=== PATIENT | female | born 1965 | race African-American/Black ===

== ENCOUNTER 2019-10-13 15:34 | Inpatient (IN) | payer BC ==
[~2019-10-13] VITALS: Ht 157.5 cm; Wt 107.9 kg
[2019-10-13] VITALS (7 sets, daily range): BP systolic 131–185; BP diastolic 54–94
[2019-10-13] MEDS ORDERED: cloNIDine HCL 0.1 MG TABLET PO ONE (16:00)
[2019-10-13] MEDS ORDERED: IV NORMAL SALINE 1000ML BAG 1,000 ML IV ONE (16:00)
[2019-10-13 16:26] LABS: BASO # 0.1 x10^3/uL (0.0-0.2); BASO % 1 % (0-3); EOS # 0.1 x10^3/uL (0.0-0.7); EOS % 1 % (0-3); HEMATOCRIT 45.8 % (36.0-47.0); HEMOGLOBIN 14.9 g/dL (12.0-15.5); LYMPH # 2.5 x10^3/uL (1.0-4.8); LYMPH % 29 % (24-48); MEAN CORPUSCULAR HEMOGLOBIN 31 pg (25-35); MEAN CORPUSCULAR HGB CONC 33 g/dL (31-37); MEAN CORPUSCULAR VOLUME 96 fL (79-100); MONO # 0.7 x10^3/uL (0.0-1.1); MONO % 8 % (0-9); NEUT # 5.3 x10^3/uL (1.8-7.7); NEUT % 61 % (31-73); PLATELET COUNT 210 x10^3/uL (140-400); RED BLOOD COUNT 4.76 x10^6/uL (3.50-5.40); RED CELL DISTRIBUTION WIDTH 14.2 % (11.5-14.5); WHITE BLOOD COUNT 8.6 x10^3/uL (4.0-11.0)
--- NOTE | 2019-10-13 16:27 | EKG ---
[facility] [address] [place] [address] Test Date: 2019-10-13 Test Time: 16:21:54 Pat Name: BEVERLEY WEEKS Department: Room: Gender: F Chief Clinical Officer: : 1965 Requested By: JAKE WHEAT Order Number: [id number] Reading MD: Joshua Sommers MD Measurements Intervals [place] Rate: 82 P: 47 DC: 148 QRS: -18 QRSD: 84 T: 26 QT: 380 QTc: 447 Interpretive Statements SINUS RHYTHM Electronically Signed On 10-14-2019 10:06:11 CDT by Joshua Sommers MD
[2019-10-13 16:42] LABS: CREATININE 1.1 mg/dL (0.6-1.0); GFR 62.4; POTASSIUM 4.9 mmol/L (3.5-5.1)
[2019-10-13 16:55] LABS: ALBUMIN 3.8 g/dL (3.4-5.0); MAGNESIUM 1.9 mg/dL (1.8-2.4); TOTAL BILIRUBIN 0.4 mg/dL (0.2-1.0); TOTAL PROTEIN 7.5 g/dL (6.4-8.2)
[2019-10-13] MEDS ORDERED: INSULIN,REGULAR 100 UNIT DRIP 100 ML IV ONE (17:15)
--- NOTE | 2019-10-13 17:33 | PHYS DOC ---
Past Medical History Past Medical History: Hypertension Past Surgical History: Hysterectomy, Tubal ligation Smoking Status: Current Every Day Smoker Alcohol Use: Rarely General Adult EDM: Chief Complaint: BLOOD SUGAR PROBLEM HPI: HPI: Patient is a 54 year old female who was sent here from her family physician clinic due to elevated blood pressure and new onset diabetes. Patient says for about a week, she has been having frequent urination, very thirsty, drinking a lot of water. Patient went to the clinic today, they checked her blood sugar and it was over 400. Patient also had hypertension in the past but she is not been on any medication. Patient denies any chest pain, no abdominal pain, no nausea vomiting. Patient complained of generalized weakness. Review of Systems: Review of Systems: Constitutional: Denies fever or chills. [] Eyes: Denies change in visual acuity. [] HENT: Denies nasal congestion or sore throat. [] Respiratory: Denies cough or shortness of breath. [] Cardiovascular: Denies chest pain or edema. [] GI: Denies abdominal pain, nausea, vomiting, bloody stools or diarrhea. [] : Denies dysuria, POSITIVE FOR FREQUENT URINATION Musculoskeletal: Denies back pain or joint pain. [] Integument: Denies rash. [] Neurologic: Denies headache, focal weakness or sensory changes. [] Endocrine: Positive for polyuria or polydipsia. [] Lymphatic: Denies swollen glands. [] Psychiatric: Denies depression or anxiety. [] Heart Score: Risk Factors: Risk Factors: DM, Current or recent (<one month) smoker, HTN, HLP, family histo ry of CAD, obesity. Risk Scores: Score 0 - 3: 2.5% MACE over next 6 weeks - Discharge Home Score 4 - 6: 20.3% MACE over next 6 weeks - Admit for Clinical Observation Score 7 - 10: 72.7% MACE over next 6 weeks - Early Invasive Strategies Current Medications: Current Medications Medications (Trade) Dose Ordered Sig/Gavin Start Time Stop Time Status Last Admin Dose Admin Clonidine HCl (Catapres) 0.2 mg 1X ONCE 10/13/19 16:00 10/13/19 16:24 DC 10/13/19 16:32 0.2 MG Insulin Human Regular 100 ml @ 0 mls/hr 1X ONCE 10/13/19 17:15 10/13/19 17:16 DC Sodium Chloride 1,000 ml @ 1,000 mls/hr 1X ONCE 10/13/19 16:00 10/13/19 16:59 DC 10/13/19 16:32 1,000 MLS/HR Allergies: Allergies: Allergies Coded Allergies Type Severity Reaction Last Updated Verified No Known Drug Allergies 10/13/19 No Physical Exam: PE: Constitutional: Well developed, well nourished, no acute distress, non-toxic a ppearance. [] HENT: Normocephalic, atraumatic, bilateral external ears normal, oropharynx moist, no oral exudates, nose normal. [] Eyes: PERRLA, EOMI, conjunctiva normal, no discharge. [] Neck: Normal range of motion, no tenderness, supple, no stridor. [] Cardiovascular:Heart rate regular rhythm, no murmur [] Lungs & Thorax: Bilateral breath sounds clear to auscultation [] Abdomen: Bowel sounds normal, soft, no tenderness, no masses, no pulsatile masses. [] Skin: Warm, dry, no erythema, no rash. [] Back: No tenderness, no CVA tenderness. [] Extremities: No tenderness, no cyanosis, no clubbing, ROM intact, no edema. [] Neurologic: Alert and oriented X 3, normal motor function, normal sensory function, no focal deficits noted. [] Psychologic: Affect normal, judgement normal, mood normal. [] Current Patient Data: Labs: Laboratory Tests Test 10/13/19 16:19 White Blood Count 8.6 x10^3/uL (4.0-11.0) Red Blood Count 4.76 x10^6/uL (3.50-5.40) Hemoglobin 14.9 g/dL (12.0-15.5) Hematocrit 45.8 % (36.0-47.0) Mean Corpuscular Volume 96 fL (79-100) Mean Corpuscular Hemoglobin 31 pg (25-35) Mean Corpuscular Hemoglobin Concent 33 g/dL (31-37) Red Cell Distribution Width 14.2 % (11.5-14.5) Platelet Count 210 x10^3/uL (140-400) Neutrophils (%) (Auto) 61 % (31-73) Lymphocytes (%) (Auto) 29 % (24-48) Monocytes (%) (Auto) 8 % (0-9) Eosinophils (%) (Auto) 1 % (0-3) Basophils (%) (Auto) 1 % (0-3) Neutrophils # (Auto) 5.3 x10^3/uL (1.8-7.7) Lymphocytes # (Auto) 2.5 x10^3/uL (1.0-4.8) Monocytes # (Auto) 0.7 x10^3/uL (0.0-1.1) Eosinophils # (Auto) 0.1 x10^3/uL (0.0-0.7) Basophils # (Auto) 0.1 x10^3/uL (0.0-0.2) Sodium Level 130 mmol/L (136-145) L Potassium Level 4.9 mmol/L (3.5-5.1) Chloride Level 94 mmol/L (98-107) L Carbon Dioxide Level 16 mmol/L (21-32) L Anion Gap 20 (6-14) H Blood Urea Nitrogen 16 mg/dL (7-20) Creatinine 1.1 mg/dL (0.6-1.0) H Estimated GFR (Cockcroft-Gault) 62.4 BUN/Creatinine Ratio 15 (6-20) Glucose Level 445 mg/dL (70-99) H Calcium Level 9.0 mg/dL (8.5-10.1) Magnesium Level 1.9 mg/dL (1.8-2.4) Total Bilirubin 0.4 mg/dL (0.2-1.0) Aspartate Amino Transferase (AST) 14 U/L (15-37) L Alanine Aminotransferase (ALT) 31 U/L (14-59) Alkaline Phosphatase 206 U/L (46-116) H Troponin I Quantitative < 0.017 ng/mL (0.000-0.055) Total Protein 7.5 g/dL (6.4-8.2) Albumin 3.8 g/dL (3.4-5.0) Albumin/Globulin Ratio 1.0 (1.0-1.7) Acetone Level Sm pos (NEG) Laboratory Tests 10/13/19 16:19 Laboratory Tests 10/13/19 16:19 Vital Signs: Vital Signs Date Time Temp Pulse Resp B/P (MAP) Pulse Ox O2 Delivery O2 Flow Rate FiO2 10/13/19 16:32 84 215/99 10/13/19 16:16 18 97 Room Air 10/13/19 15:51 98.7 98.7 EKG: EKG: [] Radiology/Procedures: Radiology/Procedures: [] Course & Med Decision Making: Course & Med Decision Making Pertinent Labs and Imaging studies reviewed. (See chart for details) Patient is a 54-year-old female with new onset diabetic IN DKA. Patient was found to have hypertensive urgency. Patient has history hypertension but she is not on medication for it. Patient was given IV fluid, she was given .2 mg of clonidine p.o. Her blood pressure continued to be high. Patient will be admitted to hospital. Patient was started on insulin drip, and Cardene drip. Discuss with Dr. Marc who agreed to admit patient. Critical care time was [60] minutes which includes time at bedside, spent in discussion of patient's care with specialist and/or family members, with interpretation of laboratory and/or radiological studies and is exclusive of procedures. [place]rahan Disclaimer: Dragarvin Disclaimer: This electronic medical record was generated, in whole or in part, using a voice recognition dictation system. Departure Departure Impression: Primary Impression: DKA (diabetic ketoacidoses) Additional Impression: Hypertensive urgency Disposition: ADMITTED INPATIENT Admitting Physician: ABBI (DR. MCQUEEN) Condition: IMPROVED Referrals: MERRILL WEEKS MD (PCP) JAKE WHEAT DO Oct 13, 2019 17:33
[2019-10-13 17:37] LABS: BASE EXCESS ABG -11 mmol/L (-3-3); HCO3 ABG 15 mmol/L (21-28); PCO2 ABG 33 mmHg (35-46); PO2 ABG 95 mmHg (75-108); SAT O2 ABG 97 % (92-99)
[2019-10-13] MEDS ORDERED: SODIUM BICARBONATE VIAL 50 MEQ in IV 1/2 NORMAL SALINE 1,000 ML IV PRN (17:37)
[2019-10-13] MEDS ORDERED: IV NORMAL SALINE 1000ML BAG 1,000 ML IV SCH ×2 (17:37→19:02)
[2019-10-13 17:41] LABS: FIO2 ABG RA 21%
[2019-10-13] MEDS ORDERED: SODIUM PHOSPHATE 10 MMOL in IV NORMAL SALINE 100ML 250 ML IV PRN (17:45)
[2019-10-13] MEDS ORDERED: ACETAMINOPHEN 325 MG TABLET. PO PRN (17:45)
[2019-10-13] MEDS ORDERED: SODIUM PHOSPHATE 40 MMOL in IV NORMAL SALINE 500ML BAG 500 ML IV PRN (17:45)
[2019-10-13] MEDS ORDERED: ONDANSETRON PF 4 MG/2 ML VIAL. IV PRN (17:45)
[2019-10-13] MEDS ORDERED: guaiFENesin ORAL 200 MG/10 ML LIQUID. PO PRN (17:45)
[2019-10-13] MEDS ORDERED: POTASSIUM CHLORIDE 10MEQ 100 ML IV PRN ×3 (17:45)
[2019-10-13] MEDS ORDERED: SODIUM PHOSPHATE 20 MMOL in IV NORMAL SALINE 250ML 250 ML IV PRN (17:45)
[2019-10-13] MEDS ORDERED: INSULIN REGULAR VIAL 100 UNIT in IV NORMAL SALINE 100ML 100 ML IV PRN (17:45)
[2019-10-13] MEDS ORDERED: LORazepam 0.5 MG TABLET PO PRN (17:45)
[2019-10-13] MEDS ORDERED: ALBUTEROL SULFATE 2.5 MG/3 ML NEBU. NEB PRN (17:45)
[2019-10-13] MEDS ORDERED: DOCUSATE SODIUM 100 MG CAPSULE. PO PRN (17:45)
[2019-10-13] MEDS ORDERED: IV 1/2 NORMAL SALINE 1,000 ML IV SCH ×2 (19:00→19:02)
--- NOTE | 2019-10-13 19:30 | NUR ---
Pt admitted to PACU-9 from the ED. Pt is A/Ox4, SR on the monitor. Cardene and Insulin drips infusing. Pt denies pain at this time.
--- NOTE | 2019-10-13 20:16 | PDOC1 ---
History and Physical Date of Admission Date of Admission 10/13/2019 Identification/Chief Complaint Chief Complaint I feel sick History of Present Illness History of Present Illness Patient is a 54-year-old female who comes with a history of more or less 1 week prior to her admission of increased thirst and also as a consequence polyuria. The patient denies polyphagia no changes to her recent diet no recent infections either. She has past medical history of hypertension and she also complains of blurred vision over the last week. She denies any recent upper respiratory tract infections. The patient denies headache no sinus pain no cough sputum production no cough or sneezing no chest pressure no palpitations no dyspnea has been reported. She was seen in the outpatient setting by a primary care physician who recommended patient come to the ER for further evaluation. While in the ER the patient laboratory data revealed a new onset diabetes with evidence of DKA as well. Patient also had an uncontrolled hypertension greater than 220 reason why we were asked to admit the patient for further evaluation and treatment. The patient at the time my evaluation is able to provide me with details of her history no other symptoms were voiced plan of care was explained in detail and all of her concerns were addressed to the best of my abilities. No exposure to coronavirus was expressed by the patient Current Problem List Problem List Problems Medical Problems: (1) DKA (diabetic ketoacidoses) Status: Acute (2) Hypertensive urgency Status: Acute Current Medications Current Medications Current Medications Medications (Trade) Dose Ordered Sig/Gavin Start Time Stop Time Status Last Admin Dose Admin Acetaminophen (Tylenol) 650 mg PRN Q4HRS PRN 10/13/19 17:45 Albuterol Sulfate (Ventolin Neb Soln) 2.5 mg PRN Q4HRS PRN 10/13/19 17:45 Clonidine HCl (Catapres) 0.2 mg 1X ONCE 10/13/19 16:00 10/13/19 16:24 DC 10/13/19 16:32 0.2 MG Dextrose/Sodium Chloride 1,000 ml @ 250 mls/hr Q4H 10/13/19 21:00 Docusate Sodium (Colace) 100 mg PRN BID PRN 10/13/19 17:45 Enoxaparin Sodium (Lovenox 40mg Syringe) 40 mg Q24H 10/13/19 21:00 Guaifenesin (Robitussin) 200 mg PRN Q4HRS PRN 10/13/19 17:45 Insulin Human Regular 100 ml @ 0 mls/hr 1X ONCE 10/13/19 17:15 10/13/19 17:16 DC 10/13/19 18:14 7.7 MLS/HR Insulin Human Regular 100 unit/ Sodium Chloride 101 ml @ 0 mls/hr CONT PRN PRN 10/13/19 17:45 Lorazepam (Ativan) 0.5 mg PRN Q4HRS PRN 10/13/19 17:45 Magnesium Sulfate 100 ml @ 25 mls/hr PRN DAILY PRN 10/14/19 09:00 Nicardipine HCl 50 mg/Sodium Chloride 250 ml @ 25 mls/hr CONT PRN 10/13/19 17:45 10/13/19 18:11 25 MLS/HR Ondansetron HCl (Zofran) 4 mg PRN Q4HRS PRN 10/13/19 17:45 Potassium Chloride/Water 100 ml @ 100 mls/hr PRN Q1HR PRN 10/13/19 17:45 Sodium Bicarbonate 50 meq/Sodium Chloride 1,050 ml @ 500 mls/hr CONT PRN 10/13/19 17:37 Sodium Chloride 1,000 ml @ 250 mls/hr Q4H 10/13/19 19:02 Sodium Phosphate 10 mmol/Sodium Chloride 253.3333 ml @ 25 mls/hr 1X PRN PRN 10/13/19 17:45 Sodium Phosphate 20 mmol/Sodium Chloride 256.6667 ml @ 62.5 mls/hr 1X PRN PRN 10/13/19 17:45 Sodium Phosphate 40 mmol/Sodium Chloride 513.3333 ml @ 83.3 mls/hr 1X PRN PRN 10/13/19 17:45 Allergies Allergies Allergies Coded Allergies Type Severity Reaction Last Updated Verified No Known Drug Allergies 10/13/19 No ROS Review of System CONSTITUTIONAL: No fever or chills EYES: No recent changes SKIN: No rash or itching CARDIOVASCULAR: No chest pain, syncope, palpitations, or edema RESPIRATORY: No SOB or cough GASTROINTESTINAL: No nausea, vomiting or abdominal pain NEUROLOGICAL: No headaches or weakness ENDOCRINE: No cold or heat intolerance GENITOURINARY: Frequent urination MUSCULOSKELETAL: No back pain or joint pain LYMPHATICS: No enlarged lymph nodes PSYCHIATRIC: No anxiety or depression Physical Exam Physical Exam GEN.: No apparent distress. Alert and oriented. HEENT: Head is normocephalic, atraumatic NECK: Supple. LUNGS: Clear to auscultation. HEART: RRR, S1, S2 present. Peripheral pulses intact ABDOMEN: Soft, nontender. Positive bowel sounds. EXTREMITIES: Without any cyanosis. NEUROLOGIC: Normal speech, normal tone PSYCHIATRIC: Normal affect, normal mood. SKIN: No ulcerations Vitals Vitals Vital Signs Date Time Temp Pulse Resp B/P (MAP) Pulse Ox O2 Delivery O2 Flow Rate FiO2 10/13/19 18:46 70 20 161/72 (101) 97 Room Air 10/13/19 15:51 98.7 98.7 Labs Labs Laboratory Tests Test 10/13/19 16:19 10/13/19 17:06 10/13/19 19:30 White Blood Count 8.6 x10^3/uL (4.0-11.0) Red Blood Count 4.76 x10^6/uL (3.50-5.40) Hemoglobin 14.9 g/dL (12.0-15.5) Hematocrit 45.8 % (36.0-47.0) Mean Corpuscular Volume 96 fL (79-100) Mean Corpuscular Hemoglobin 31 pg (25-35) Mean Corpuscular Hemoglobin Concent 33 g/dL (31-37) Red Cell Distribution Width 14.2 % (11.5-14.5) Platelet Count 210 x10^3/uL (140-400) Neutrophils (%) (Auto) 61 % (31-73) Lymphocytes (%) (Auto) 29 % (24-48) Monocytes (%) (Auto) 8 % (0-9) Eosinophils (%) (Auto) 1 % (0-3) Basophils (%) (Auto) 1 % (0-3) Neutrophils # (Auto) 5.3 x10^3/uL (1.8-7.7) Lymphocytes # (Auto) 2.5 x10^3/uL (1.0-4.8) Monocytes # (Auto) 0.7 x10^3/uL (0.0-1.1) Eosinophils # (Auto) 0.1 x10^3/uL (0.0-0.7) Basophils # (Auto) 0.1 x10^3/uL (0.0-0.2) Sodium Level 130 mmol/L (136-145) Potassium Level 4.9 mmol/L (3.5-5.1) Chloride Level 94 mmol/L (98-107) Carbon Dioxide Level 16 mmol/L (21-32) Anion Gap 20 (6-14) Blood Urea Nitrogen 16 mg/dL (7-20) Creatinine 1.1 mg/dL (0.6-1.0) Estimated GFR (Cockcroft-Gault) 62.4 BUN/Creatinine Ratio 15 (6-20) Glucose Level 445 mg/dL (70-99) Calcium Level 9.0 mg/dL (8.5-10.1) Phosphorus Level 4.5 mg/dL (2.6-4.7) Magnesium Level 1.9 mg/dL (1.8-2.4) Total Bilirubin 0.4 mg/dL (0.2-1.0) Aspartate Amino Transf (AST/SGOT) 14 U/L (15-37) Alanine Aminotransferase (ALT/SGPT) 31 U/L (14-59) Alkaline Phosphatase 206 U/L (46-116) Troponin I Quantitative < 0.017 ng/mL (0.000-0.055) Total Protein 7.5 g/dL (6.4-8.2) Albumin 3.8 g/dL (3.4-5.0) Albumin/Globulin Ratio 1.0 (1.0-1.7) Acetone Level Sm pos (NEG) O2 Saturation 97 % (92-99) Arterial Blood pH 7.27 (7.35-7.45) Arterial Blood pCO2 at Patient Temp 33 mmHg (35-46) Arterial Blood pO2 at Patient Temp 95 mmHg (75-108) Arterial Blood HCO3 15 mmol/L (21-28) Arterial Blood Base Excess -11 mmol/L (-3-3) FiO2 Ra 21% Glucose (Fingerstick) 287 mg/dL (70-99) Laboratory Tests Test 10/13/19 16:19 10/13/19 17:06 10/13/19 19:30 White Blood Count 8.6 x10^3/uL (4.0-11.0) Red Blood Count 4.76 x10^6/uL (3.50-5.40) Hemoglobin 14.9 g/dL (12.0-15.5) Hematocrit 45.8 % (36.0-47.0) Mean Corpuscular Volume 96 fL (79-100) Mean Corpuscular Hemoglobin 31 pg (25-35) Mean Corpuscular Hemoglobin Concent 33 g/dL (31-37) Red Cell Distribution Width 14.2 % (11.5-14.5) Platelet Count 210 x10^3/uL (140-400) Neutrophils (%) (Auto) 61 % (31-73) Lymphocytes (%) (Auto) 29 % (24-48) Monocytes (%) (Auto) 8 % (0-9) Eosinophils (%) (Auto) 1 % (0-3) Basophils (%) (Auto) 1 % (0-3) Neutrophils # (Auto) 5.3 x10^3/uL (1.8-7.7) Lymphocytes # (Auto) 2.5 x10^3/uL (1.0-4.8) Monocytes # (Auto) 0.7 x10^3/uL (0.0-1.1) Eosinophils # (Auto) 0.1 x10^3/uL (0.0-0.7) Basophils # (Auto) 0.1 x10^3/uL (0.0-0.2) Sodium Level 130 mmol/L (136-145) Potassium Level 4.9 mmol/L (3.5-5.1) Chloride Level 94 mmol/L (98-107) Carbon Dioxide Level 16 mmol/L (21-32) Anion Gap 20 (6-14) Blood Urea Nitrogen 16 mg/dL (7-20) Creatinine 1.1 mg/dL (0.6-1.0) Estimated GFR (Cockcroft-Gault) 62.4 BUN/Creatinine Ratio 15 (6-20) Glucose Level 445 mg/dL (70-99) Calcium Level 9.0 mg/dL (8.5-10.1) Phosphorus Level 4.5 mg/dL (2.6-4.7) Magnesium Level 1.9 mg/dL (1.8-2.4) Total Bilirubin 0.4 mg/dL (0.2-1.0) Aspartate Amino Transf (AST/SGOT) 14 U/L (15-37) Alanine Aminotransferase (ALT/SGPT) 31 U/L (14-59) Alkaline Phosphatase 206 U/L (46-116) Troponin I Quantitative < 0.017 ng/mL (0.000-0.055) Total Protein 7.5 g/dL (6.4-8.2) Albumin 3.8 g/dL (3.4-5.0) Albumin/Globulin Ratio 1.0 (1.0-1.7) Acetone Level Sm pos (NEG) O2 Saturation 97 % (92-99) Arterial Blood pH 7.27 (7.35-7.45) Arterial Blood pCO2 at Patient Temp 33 mmHg (35-46) Arterial Blood pO2 at Patient Temp 95 mmHg (75-108) Arterial Blood HCO3 15 mmol/L (21-28) Arterial Blood Base Excess -11 mmol/L (-3-3) FiO2 Ra 21% Glucose (Fingerstick) 287 mg/dL (70-99) VTE Prophylaxis Ordered VTE Prophylaxis Devices: No VTE Pharmacological Prophylaxi: Yes Assessment/Plan Assessment/Plan Diabetic ketoacidosis New onset diabetes Hypertensive urgency Morbid obesity with a BMI of 42 High anion gap acidosis secondary to DKA Severe dehydration Pseudohyponatremia Plan: Admit the patient to the ICU where she will continue with an insulin drip and Cardene drip. Follow the protocol Keep patient n.p.o. Repeat BMP every 4 hours IV fluid resuscitation We will follow potassium and phosphorus level Further recommendations will be based on the clinical course DVT prophylaxis with SAMY Frederick MD Oct 13, 2019 20:16
[2019-10-13] MEDS ORDERED: ENOXAPARIN 40 MG/0.4 ML SYRINGE. SQ SCH (21:00)
[2019-10-13] MEDS ORDERED: IV DEXTROSE 5 %-0.45 % NACL 1,000 ML IV SCH (21:00)
[2019-10-13 21:26] LABS: CALCIUM 8.3 mg/dL (8.5-10.1); CREATININE 0.9 mg/dL (0.6-1.0); GFR 78.7; MAGNESIUM 1.7 mg/dL (1.8-2.4); PHOSPHORUS 2.6 mg/dL (2.6-4.7); POTASSIUM 3.7 mmol/L (3.5-5.1)
[2019-10-13] MEDS ORDERED: SODIUM PHOSPHATE 20 MMOL in IV NORMAL SALINE 250ML 250 ML IV ONE (22:00)
[2019-10-13] MEDS: POTASSIUM CHLORIDE 10MEQ 100 ML IV SCH ×2 (22:23→23:26)
[2019-10-13] MEDS: IV DEXTROSE 5% - 0.9 % NACL 1,000 ML IV SCH (22:23)
[2019-10-14] VITALS (18 sets, daily range): BP systolic 114–178; BP diastolic 49–88
[2019-10-14] MEDS: POTASSIUM CHLORIDE 10MEQ 100 ML IV SCH ×4 (00:26→05:26)
[2019-10-14] MEDS: IV DEXTROSE 5% - 0.9 % NACL 1,000 ML IV SCH ×2 (01:54→06:10)
[2019-10-14 02:56] LABS: CALCIUM 7.6 mg/dL (8.5-10.1); CREATININE 0.8 mg/dL (0.6-1.0); GFR 90.1; POTASSIUM 4.1 mmol/L (3.5-5.1)
[2019-10-14 03:00] LABS: MAGNESIUM 1.5 mg/dL (1.8-2.4); PHOSPHORUS 3.5 mg/dL (2.6-4.7)
[2019-10-14] MEDS ORDERED: MAGNESIUM SULFATE 4GM 100 ML IV ONE (03:45)
[2019-10-14 08:59] LABS: CALCIUM 7.7 mg/dL (8.5-10.1); CREATININE 0.7 mg/dL (0.6-1.0); GFR 105.1; MAGNESIUM 1.9 mg/dL (1.8-2.4); PHOSPHORUS 2.3 mg/dL (2.6-4.7); POTASSIUM 3.9 mmol/L (3.5-5.1)
[2019-10-14] MEDS ORDERED: MAGNESIUM SULFATE 4GM 100 ML IV PRN (09:00)
[2019-10-14] MEDS: INSULIN GLARGINE SYRINGE. SQ SCH ×2 (10:04→21:00)
[2019-10-14] MEDS ORDERED: ENALAPRILAT 1.25 MG/ML VIAL. IVP PRN (11:30)
[2019-10-14] MEDS: hydroCHLOROthiazide 12.5 MG CAPSULE PO SCH (11:40)
[2019-10-14] MEDS: LISINOPRIL 20 MG TABLET PO SCH (11:41)
--- NOTE | 2019-10-14 15:43 | NUR ---
SS following for discharge planning. SS reviewed pt chart and discussed with RN. Pt is from home with spouse and is currently on room air. SS will continue to follow for discharge planning.
[2019-10-14] MEDS: amLODIPine BESYLATE 5 MG TABLET PO SCH (16:50)
--- NOTE | 2019-10-14 17:15 | PDOC ---
PROGRESS NOTES Chief Complaint Chief Complaint Diabetic ketoacidosis resolved New onset diabetes counseling done greater than 20 minutes in [id number] encounter Hypertensive urgency resolved Morbid obesity with a BMI of 42 High anion gap acidosis secondary to DKA resolved Severe dehydration resolved Pseudohyponatremia resolved Plan: Continue with lisinopril hydrochlorothiazide and amlodipine Vasotec as needed May move to the medical floor Reassess in the a.m. and if glycemia continues to be controlled she may be discharged in the morning Further recommendations will be based on the clinical course DVT prophylaxis with SCDs Greater than 40 minutes spent in the care of the patient today in counseling coordination of care and [id number] contact History of Present Illness History of Present Illness Patient much better compared to yesterday. Her anion gap has closed and she is tolerating a diet. Patient has received education regarding her new diagnosis of diabetes importance of observing an ADA diet and I have explained to her the different options that we have as far as treatment plans. Acute complications of the disease and chronic complications of the disease were also presented to the patient including the possibility of blindness nontraumatic amputations kidney disease that can end up in dialysis heart disease etc. she acknowledged understanding of all the information that I have provided during my encounter Vitals Vitals Vital Signs Date Time Temp Pulse Resp B/P (MAP) Pulse Ox O2 Delivery O2 Flow Rate FiO2 10/14/19 16:50 74 155/75 10/14/19 16:00 98.7 18 97 Room Air 98.7 Physical Exam Physical Exam Gen.: well-developed well-nourished in no apparent distress Head: Normal shape atraumatic Eyes: Pupils equal reactive to light and accommodation, normal conjunctivae and lids Ears: Normal shape Nose: Normal shape no trauma Mouth: No exudates of the back of throat no thrush no lesions Neck: Supple no JVD no carotid bruit or lymphadenopathy no thyromegaly Chest: Lungs clear to auscultation with good inspiratory effort no crackles rales or rhonchi Cardiovascular: S1-S2 regular rhythm no murmurs gallops or rubs Abdomen: Bowel sounds present soft nontender no hepatosplenomegaly appreciated sign Extremities: No clubbing no cyanosis no edema peripheral pulses palpated bilaterally Neurological: Alert awake oriented in person time place and situation, cranial nerves II through XII intact, no motor or sensory deficits appreciated Psych: Appropriate mood, cooperative Labs LABS Laboratory Tests Test 10/13/19 17:06 10/13/19 19:30 10/13/19 20:33 10/13/19 20:55 O2 Saturation 97 % (92-99) Arterial Blood pH 7.27 (7.35-7.45) Arterial Blood pCO2 at Patient Temp 33 mmHg (35-46) Arterial Blood pO2 at Patient Temp 95 mmHg (75-108) Arterial Blood HCO3 15 mmol/L (21-28) Arterial Blood Base Excess -11 mmol/L (-3-3) FiO2 Ra 21% Glucose (Fingerstick) 287 mg/dL (70-99) 230 mg/dL (70-99) Sodium Level 135 mmol/L (136-145) Potassium Level 3.7 mmol/L (3.5-5.1) Chloride Level 102 mmol/L (98-107) Carbon Dioxide Level 18 mmol/L (21-32) Anion Gap 15 (6-14) Blood Urea Nitrogen 13 mg/dL (7-20) Creatinine 0.9 mg/dL (0.6-1.0) Estimated GFR (Cockcroft-Gault) 78.7 Glucose Level 225 mg/dL (70-99) Calcium Level 8.3 mg/dL (8.5-10.1) Phosphorus Level 2.6 mg/dL (2.6-4.7) Magnesium Level 1.7 mg/dL (1.8-2.4) Test 10/13/19 21:40 10/13/19 22:42 10/13/19 23:45 10/14/19 00:47 Glucose (Fingerstick) 192 mg/dL (70-99) 215 mg/dL (70-99) 206 mg/dL (70-99) 154 mg/dL (70-99) Test 10/14/19 01:50 10/14/19 02:45 10/14/19 02:54 10/14/19 03:57 Glucose (Fingerstick) 142 mg/dL (70-99) 166 mg/dL (70-99) 176 mg/dL (70-99) Sodium Level 138 mmol/L (136-145) Potassium Level 4.1 mmol/L (3.5-5.1) Chloride Level 107 mmol/L (98-107) Carbon Dioxide Level 23 mmol/L (21-32) Anion Gap 8 (6-14) Blood Urea Nitrogen 10 mg/dL (7-20) Creatinine 0.8 mg/dL (0.6-1.0) Estimated GFR (Cockcroft-Gault) 90.1 Glucose Level 169 mg/dL (70-99) Calcium Level 7.6 mg/dL (8.5-10.1) Phosphorus Level 3.5 mg/dL (2.6-4.7) Magnesium Level 1.5 mg/dL (1.8-2.4) Test 10/14/19 05:06 10/14/19 06:12 10/14/19 07:17 10/14/19 08:15 Glucose (Fingerstick) 99 mg/dL (70-99) 195 mg/dL (70-99) 177 mg/dL (70-99) Sodium Level 140 mmol/L (136-145) Potassium Level 3.9 mmol/L (3.5-5.1) Chloride Level 109 mmol/L (98-107) Carbon Dioxide Level 21 mmol/L (21-32) Anion Gap 10 (6-14) Blood Urea Nitrogen 8 mg/dL (7-20) Creatinine 0.7 mg/dL (0.6-1.0) Estimated GFR (Cockcroft-Gault) 105.1 Glucose Level 156 mg/dL (70-99) Calcium Level 7.7 mg/dL (8.5-10.1) Phosphorus Level 2.3 mg/dL (2.6-4.7) Magnesium Level 1.9 mg/dL (1.8-2.4) Test 10/14/19 08:18 10/14/19 09:01 10/14/19 09:23 10/14/19 10:31 Glucose (Fingerstick) 157 mg/dL (70-99) 160 mg/dL (70-99) 155 mg/dL (70-99) 124 mg/dL (70-99) Test 10/14/19 12:04 10/14/19 15:51 Glucose (Fingerstick) 164 mg/dL (70-99) 244 mg/dL (70-99) Assessment and Plan Assessmemt and Plan Problems Medical Problems: (1) DKA (diabetic ketoacidoses) Status: Acute (2) Hypertensive urgency Status: Acute Comment Review of Relevant I have reviewed the following items yashira (where applicable) has been applied. Labs Laboratory Tests Test 10/13/19 16:19 10/13/19 17:06 10/13/19 19:30 10/13/19 20:33 White Blood Count 8.6 x10^3/uL (4.0-11.0) Red Blood Count 4.76 x10^6/uL (3.50-5.40) Hemoglobin 14.9 g/dL (12.0-15.5) Hematocrit 45.8 % (36.0-47.0) Mean Corpuscular Volume 96 fL (79-100) Mean Corpuscular Hemoglobin 31 pg (25-35) Mean Corpuscular Hemoglobin Concent 33 g/dL (31-37) Red Cell Distribution Width 14.2 % (11.5-14.5) Platelet Count 210 x10^3/uL (140-400) Neutrophils (%) (Auto) 61 % (31-73) Lymphocytes (%) (Auto) 29 % (24-48) Monocytes (%) (Auto) 8 % (0-9) Eosinophils (%) (Auto) 1 % (0-3) Basophils (%) (Auto) 1 % (0-3) Neutrophils # (Auto) 5.3 x10^3/uL (1.8-7.7) Lymphocytes # (Auto) 2.5 x10^3/uL (1.0-4.8) Monocytes # (Auto) 0.7 x10^3/uL (0.0-1.1) Eosinophils # (Auto) 0.1 x10^3/uL (0.0-0.7) Basophils # (Auto) 0.1 x10^3/uL (0.0-0.2) Sodium Level 130 mmol/L (136-145) Potassium Level 4.9 mmol/L (3.5-5.1) Chloride Level 94 mmol/L (98-107) Carbon Dioxide Level 16 mmol/L (21-32) Anion Gap 20 (6-14) Blood Urea Nitrogen 16 mg/dL (7-20) Creatinine 1.1 mg/dL (0.6-1.0) Estimated GFR (Cockcroft-Gault) 62.4 BUN/Creatinine Ratio 15 (6-20) Glucose Level 445 mg/dL (70-99) Calcium Level 9.0 mg/dL (8.5-10.1) Phosphorus Level 4.5 mg/dL (2.6-4.7) Magnesium Level 1.9 mg/dL (1.8-2.4) Total Bilirubin 0.4 mg/dL (0.2-1.0) Aspartate Amino Transf (AST/SGOT) 14 U/L (15-37) Alanine Aminotransferase (ALT/SGPT) 31 U/L (14-59) Alkaline Phosphatase 206 U/L (46-116) Troponin I Quantitative < 0.017 ng/mL (0.000-0.055) Total Protein 7.5 g/dL (6.4-8.2) Albumin 3.8 g/dL (3.4-5.0) Albumin/Globulin Ratio 1.0 (1.0-1.7) Acetone Level Sm pos (NEG) O2 Saturation 97 % (92-99) Arterial Blood pH 7.27 (7.35-7.45) Arterial Blood pCO2 at Patient Temp 33 mmHg (35-46) Arterial Blood pO2 at Patient Temp 95 mmHg (75-108) Arterial Blood HCO3 15 mmol/L (21-28) Arterial Blood Base Excess -11 mmol/L (-3-3) FiO2 Ra 21% Glucose (Fingerstick) 287 mg/dL (70-99) 230 mg/dL (70-99) Test 10/13/19 20:55 10/13/19 21:40 10/13/19 22:42 10/13/19 23:45 Sodium Level 135 mmol/L (136-145) Potassium Level 3.7 mmol/L (3.5-5.1) Chloride Level 102 mmol/L (98-107) Carbon Dioxide Level 18 mmol/L (21-32) Anion Gap 15 (6-14) Blood Urea Nitrogen 13 mg/dL (7-20) Creatinine 0.9 mg/dL (0.6-1.0) Estimated GFR (Cockcroft-Gault) 78.7 Glucose Level 225 mg/dL (70-99) Calcium Level 8.3 mg/dL (8.5-10.1) Phosphorus Level 2.6 mg/dL (2.6-4.7) Magnesium Level 1.7 mg/dL (1.8-2.4) Glucose (Fingerstick) 192 mg/dL (70-99) 215 mg/dL (70-99) 206 mg/dL (70-99) Test 10/14/19 00:47 10/14/19 01:50 10/14/19 02:45 10/14/19 02:54 Glucose (Fingerstick) 154 mg/dL (70-99) 142 mg/dL (70-99) 166 mg/dL (70-99) Sodium Level 138 mmol/L (136-145) Potassium Level 4.1 mmol/L (3.5-5.1) Chloride Level 107 mmol/L (98-107) Carbon Dioxide Level 23 mmol/L (21-32) Anion Gap 8 (6-14) Blood Urea Nitrogen 10 mg/dL (7-20) Creatinine 0.8 mg/dL (0.6-1.0) Estimated GFR (Cockcroft-Gault) 90.1 Glucose Level 169 mg/dL (70-99) Calcium Level 7.6 mg/dL (8.5-10.1) Phosphorus Level 3.5 mg/dL (2.6-4.7) Magnesium Level 1.5 mg/dL (1.8-2.4) Test 10/14/19 03:57 10/14/19 05:06 10/14/19 06:12 10/14/19 07:17 Glucose (Fingerstick) 176 mg/dL (70-99) 99 mg/dL (70-99) 195 mg/dL (70-99) 177 mg/dL (70-99) Test 10/14/19 08:15 10/14/19 08:18 10/14/19 09:01 10/14/19 09:23 Sodium Level 140 mmol/L (136-145) Potassium Level 3.9 mmol/L (3.5-5.1) Chloride Level 109 mmol/L (98-107) Carbon Dioxide Level 21 mmol/L (21-32) Anion Gap 10 (6-14) Blood Urea Nitrogen 8 mg/dL (7-20) Creatinine 0.7 mg/dL (0.6-1.0) Estimated GFR (Cockcroft-Gault) 105.1 Glucose Level 156 mg/dL (70-99) Calcium Level 7.7 mg/dL (8.5-10.1) Phosphorus Level 2.3 mg/dL (2.6-4.7) Magnesium Level 1.9 mg/dL (1.8-2.4) Glucose (Fingerstick) 157 mg/dL (70-99) 160 mg/dL (70-99) 155 mg/dL (70-99) Test 10/14/19 10:31 10/14/19 12:04 10/14/19 15:51 Glucose (Fingerstick) 124 mg/dL (70-99) 164 mg/dL (70-99) 244 mg/dL (70-99) Laboratory Tests Test 10/13/19 17:06 10/13/19 19:30 10/13/19 20:33 10/13/19 20:55 O2 Saturation 97 % (92-99) Arterial Blood pH 7.27 (7.35-7.45) Arterial Blood pCO2 at Patient Temp 33 mmHg (35-46) Arterial Blood pO2 at Patient Temp 95 mmHg (75-108) Arterial Blood HCO3 15 mmol/L (21-28) Arterial Blood Base Excess -11 mmol/L (-3-3) FiO2 Ra 21% Glucose (Fingerstick) 287 mg/dL (70-99) 230 mg/dL (70-99) Sodium Level 135 mmol/L (136-145) Potassium Level 3.7 mmol/L (3.5-5.1) Chloride Level 102 mmol/L (98-107) Carbon Dioxide Level 18 mmol/L (21-32) Anion Gap 15 (6-14) Blood Urea Nitrogen 13 mg/dL (7-20) Creatinine 0.9 mg/dL (0.6-1.0) Estimated GFR (Cockcroft-Gault) 78.7 Glucose Level 225 mg/dL (70-99) Calcium Level 8.3 mg/dL (8.5-10.1) Phosphorus Level 2.6 mg/dL (2.6-4.7) Magnesium Level 1.7 mg/dL (1.8-2.4) Test 10/13/19 21:40 10/13/19 22:42 10/13/19 23:45 10/14/19 00:47 Glucose (Fingerstick) 192 mg/dL (70-99) 215 mg/dL (70-99) 206 mg/dL (70-99) 154 mg/dL (70-99) Test 10/14/19 01:50 10/14/19 02:45 10/14/19 02:54 10/14/19 03:57 Glucose (Fingerstick) 142 mg/dL (70-99) 166 mg/dL (70-99) 176 mg/dL (70-99) Sodium Level 138 mmol/L (136-145) Potassium Level 4.1 mmol/L (3.5-5.1) Chloride Level 107 mmol/L (98-107) Carbon Dioxide Level 23 mmol/L (21-32) Anion Gap 8 (6-14) Blood Urea Nitrogen 10 mg/dL (7-20) Creatinine 0.8 mg/dL (0.6-1.0) Estimated GFR (Cockcroft-Gault) 90.1 Glucose Level 169 mg/dL (70-99) Calcium Level 7.6 mg/dL (8.5-10.1) Phosphorus Level 3.5 mg/dL (2.6-4.7) Magnesium Level 1.5 mg/dL (1.8-2.4) Test 10/14/19 05:06 10/14/19 06:12 10/14/19 07:17 10/14/19 08:15 Glucose (Fingerstick) 99 mg/dL (70-99) 195 mg/dL (70-99) 177 mg/dL (70-99) Sodium Level 140 mmol/L (136-145) Potassium Level 3.9 mmol/L (3.5-5.1) Chloride Level 109 mmol/L (98-107) Carbon Dioxide Level 21 mmol/L (21-32) Anion Gap 10 (6-14) Blood Urea Nitrogen 8 mg/dL (7-20) Creatinine 0.7 mg/dL (0.6-1.0) Estimated GFR (Cockcroft-Gault) 105.1 Glucose Level 156 mg/dL (70-99) Calcium Level 7.7 mg/dL (8.5-10.1) Phosphorus Level 2.3 mg/dL (2.6-4.7) Magnesium Level 1.9 mg/dL (1.8-2.4) Test 10/14/19 08:18 10/14/19 09:01 10/14/19 09:23 10/14/19 10:31 Glucose (Fingerstick) 157 mg/dL (70-99) 160 mg/dL (70-99) 155 mg/dL (70-99) 124 mg/dL (70-99) Test 10/14/19 12:04 10/14/19 15:51 Glucose (Fingerstick) 164 mg/dL (70-99) 244 mg/dL (70-99) Medications Current Medications Clonidine HCl (Catapres) 0.2 mg 1X ONCE PO Last administered on 10/13/19at 16:32; Start 10/13/19 at 16:00; Stop 10/13/19 at 16:24; Status DC Sodium Chloride 1,000 ml @ 1,000 mls/hr 1X ONCE IV Last administered on 10/13/19at 16:32; Start 10/13/19 at 16:00; Stop 10/13/19 at 16:59; Status DC Insulin Human Regular 100 ml @ 0 mls/hr 1X ONCE IV Last administered on 10/13/19at 18:14; Start 10/13/19 at 17:15; Stop 10/13/19 at 17:16; Status DC Nicardipine HCl 50 mg/Sodium Chloride 250 ml @ 25 mls/hr CONT PRN IV SEE I/O RECORD Last administered on 10/13/19at 18:11; Start 10/13/19 at 17:45 Sodium Chloride 1,000 ml @ 1,000 mls/hr Q1H IV Last administered on 10/13/19at 18:25; Start 10/13/19 at 17:37; Stop 10/13/19 at 18:36; Status DC Sodium Chloride 1,000 ml @ 500 mls/hr Q2H IV ; Start 10/13/19 at 19:00; Stop 10/13/19 at 19:01; Status DC Sodium Chloride 1,000 ml @ 250 mls/hr Q4H IV ; Start 10/13/19 at 19:02; Stop 10/14/19 at 11:39; Status DC Sodium Chloride 1,000 ml @ 250 mls/hr Q4H IV ; Start 10/13/19 at 19:02; Stop 10/14/19 at 11:39; Status DC Dextrose/Sodium Chloride 1,000 ml @ 250 mls/hr Q4H IV ; Start 10/13/19 at 21:00; Stop 10/13/19 at 21:46; Status DC Insulin Human Regular 100 unit/ Sodium Chloride 101 ml @ 0 mls/hr CONT PRN PRN IV PER PROTOCOL Last administered on 10/14/19at 06:38; Start 10/13/19 at 17:45; Stop 10/14/19 at 11:39; Status DC Potassium Chloride/Water 100 ml @ 100 mls/hr PRN Q1HR PRN IV SEE COMMENTS; Start 10/13/19 at 17:45; Stop 10/14/19 at 11:39; Status DC Potassium Chloride/Water 100 ml @ 100 mls/hr PRN Q1HR PRN IV SEE COMMENTS; Start 10/13/19 at 17:45; Stop 10/14/19 at 11:40; Status DC Potassium Chloride/Water 100 ml @ 100 mls/hr PRN Q1HR PRN IV SEE COMMENTS; Start 10/13/19 at 17:45; Stop 10/14/19 at 11:40; Status DC Magnesium Sulfate 100 ml @ 25 mls/hr PRN DAILY PRN IV SEE COMMENTS; Start 10/14/19 at 09:00 Sodium Bicarbonate 50 meq/Sodium Chloride 1,050 ml @ 500 mls/hr CONT PRN IV SEE COMMENTS; Start 10/13/19 at 17:37; Stop 10/14/19 at 13:37; Status DC Sodium Phosphate 40 mmol/Sodium Chloride 513.3333 ml @ 83.3 mls/hr 1X PRN PRN IV SEE COMMENTS; Start 10/13/19 at 17:45 Sodium Phosphate 20 mmol/Sodium Chloride 256.6667 ml @ 62.5 mls/hr 1X PRN PRN IV SEE COMMENTS; Start 10/13/19 at 17:45; Stop 10/14/19 at 11:39; Status DC Sodium Phosphate 10 mmol/Sodium Chloride 253.3333 ml @ 25 mls/hr 1X PRN PRN IV SEE COMMENTS; Start 10/13/19 at 17:45; Stop 10/14/19 at 11:39; Status DC Ondansetron HCl (Zofran) 4 mg PRN Q4HRS PRN IV NAUSEA/VOMITING; Start 10/13/19 at 17:45 Acetaminophen (Tylenol) 650 mg PRN Q4HRS PRN PO TEMP OVER 100.4F OR MILD PAIN; Start 10/13/19 at 17:45 Docusate Sodium (Colace) 100 mg PRN BID PRN PO CONSTIPATION; Start 10/13/19 at 17:45 Albuterol Sulfate (Ventolin Neb Soln) 2.5 mg PRN Q4HRS PRN NEB SHORTNESS OF BREATH; Start 10/13/19 at 17:45 Guaifenesin (Robitussin) 200 mg PRN Q4HRS PRN PO COUGH; Start 10/13/19 at 17:45 Lorazepam (Ativan) 0.5 mg PRN Q4HRS PRN PO ANXIETY / AGITATION; Start 10/13/19 at 17:45 Enoxaparin Sodium (Lovenox 40mg Syringe) 40 mg Q24H SQ ; Start 10/13/19 at 21:00; Stop 10/14/19 at 09:44; Status DC Dextrose/Sodium Chloride 1,000 ml @ 250 mls/hr Q4H IV Last administered on 10/14/19at 06:10; Start 10/13/19 at 22:00; Stop 10/14/19 at 11:39; Status DC Potassium Chloride/Water 100 ml @ 100 mls/hr Q1H IV Last administered on 10/14/19at 01:30; Start 10/13/19 at 22:00; Stop 10/14/19 at 01:59; Status DC Sodium Phosphate 20 mmol/Sodium Chloride 256.6667 ml @ 64.167 m... 1X ONCE IV Last administered on 10/13/19at 22:23; Start 10/13/19 at 22:00; Stop 10/14/19 at 01:59; Status DC Potassium Chloride/Water 100 ml @ 100 mls/hr Q1H IV Last administered on 10/14/19at 05:26; Start 10/14/19 at 04:00; Stop 10/14/19 at 05:59; Status DC Magnesium Sulfate 100 ml @ 25 mls/hr 1X ONCE IV Last administered on 10/14/19at 06:38; Start 10/14/19 at 03:45; Stop 10/14/19 at 07:44; Status DC Insulin Glargine (Lantus Syringe) 30 unit BID SQ Last administered on 10/14/19at 10:04; Start 10/14/19 at 10:00 Enoxaparin Sodium (Lovenox 40mg Syringe) 40 mg Q12HR SQ ; Start 10/14/19 at 21:00 Lisinopril (Prinivil) 20 mg DAILY PO Last administered on 10/14/19at 11:41; Start 10/14/19 at 11:30 Hydrochlorothiazide (Microzide) 12.5 mg DAILY PO Last administered on 10/14/19at 11:40; Start 10/14/19 at 11:30 Enalaprilat (Vasotec Inj) 1.25 mg PRN Q6HRS PRN IVP HYPERTENSION Last administered on 10/14/19at 13:33; Start 10/14/19 at 11:30 Amlodipine Besylate (Norvasc) 5 mg DAILY PO Last administered on 10/14/19at 16:50; Start 10/14/19 at 16:45 Vitals/I & O Vital Sign - Last 24 Hours 10/13/19 10/13/19 10/13/19 10/13/19 17:39 17:42 18:10 18:25 Pulse 76 82 72 Resp 18 16 18 B/P (MAP) 203/90 (127) 212/86 (128) 141/73 (95) Pulse Ox 100 97 100 97 O2 Delivery Room Air Room Air Room Air Room Air 10/13/19 10/13/19 10/13/19 10/13/19 18:33 18:46 19:15 19:30 Temp 98.5 98.5 Pulse 72 70 74 Resp 18 20 22 B/P (MAP) 148/83 (104) 161/72 (101) 185/94 (124) Pulse Ox 97 97 95 O2 Delivery Room Air Room Air Room Air Room Air 10/13/19 10/13/19 10/13/19 10/13/19 19:30 19:45 20:00 21:00 Pulse 74 74 74 70 Resp 19 19 19 19 B/P (MAP) 159/70 (99) 147/68 (94) 160/65 (96) 131/57 (81) Pulse Ox 95 95 95 92 O2 Delivery Room Air Room Air Room Air Room Air 10/13/19 10/13/19 10/14/19 10/14/19 22:00 23:00 00:00 00:00 Pulse 72 70 74 Resp 19 19 19 B/P (MAP) 132/58 (82) 147/54 (85) 114/54 (74) Pulse Ox 94 94 94 O2 Delivery Room Air Room Air Room Air Room Air 10/14/19 10/14/19 10/14/19 10/14/19 00:15 01:00 02:00 03:00 Temp 98.3 98.3 Pulse 71 71 70 69 Resp 21 14 20 18 B/P (MAP) 134/64 (87) 123/58 (79) 148/66 (93) 135/54 (81) Pulse Ox 100 100 98 100 O2 Delivery Room Air Room Air Room Air Room Air 10/14/19 10/14/19 10/14/19 10/14/19 04:00 04:00 04:15 05:00 Temp 98.6 98.6 Pulse 77 79 66 Resp 25 18 19 B/P (MAP) 114/49 (70) 131/56 (81) 146/66 (92) Pulse Ox 100 100 98 O2 Delivery Room Air Room Air Room Air Room Air 10/14/19 10/14/19 10/14/19 10/14/19 06:00 07:00 08:00 08:00 Temp 99.1 99.1 Pulse 67 64 62 Resp 20 22 20 B/P (MAP) 127/69 (88) 119/54 (75) 151/54 (86) Pulse Ox 96 96 97 O2 Delivery Room Air Room Air Room Air Room Air 10/14/19 10/14/19 10/14/19 10/14/19 09:00 10:00 11:41 12:00 Temp 99.5 99.5 Pulse 70 64 66 63 Resp 24 18 20 B/P (MAP) 161/74 (103) 159/64 (95) 185/77 178/88 (118) Pulse Ox 97 97 97 O2 Delivery Room Air Room Air Room Air 10/14/19 10/14/19 10/14/19 13:33 16:00 16:50 Temp 98.7 98.7 Pulse 65 62 74 Resp 18 B/P (MAP) 172/72 178/80 (112) 155/75 Pulse Ox 97 O2 Delivery Room Air Intake and Output 10/13/19 10/13/19 10/14/19 15:00 23:00 07:00 Intake Total 1000 ml 3170 ml Output Total 15 ml Balance 1000 ml 3155 ml SAMY VEGA MD Oct 14, 2019 17:15
[2019-10-14] MEDS ORDERED: IV DEXTROSE 5% 250 ML BAG. IV PRN (19:45)
[2019-10-14] MEDS ORDERED: DEXTROSE 50% 25 GM / 50ML DISP.SYRIN. IV PRN (19:45)
[2019-10-14] MEDS ORDERED: cloNIDine TTS-2 1 PATCH PATCH TD SCH (20:00)
--- NOTE | 2019-10-14 20:10 | NUR ---
At 1930 Patient's SBP 161, patient has PRN Vasotec IV for SBP>160 but all IVs dc'd on previous shift and patient refused new IV start; Dr Deborah ramírez. Dr Cabrera returned page at 1940, updated on condition and notified of above, also discussed increasing FSBS, Lantus Insulin dosage, and FSBS oredered AC and HS but patient does not have a Humalog Insulin Sliding Scale ordered. Orders received to start Clonidine TTS-2 patch tonight and Low Dose Humalog Insulin order set--see orders. Clonidine TTS-2 patch applied to Left upper chest on patient, she was educated on dose, when to change, alternate sites, side affects, S/Sx of hypotension and when changing positions need to slowly raise from a lying or sitting position and monitor for dizziness, lightheadedness and unsteadiness. Patient also notified of Humalog Insulin dose starting tonight and reviewed S/Sx of high and low blood sugar. All questions answered and patient verbalized understanding.
--- NOTE | 2019-10-14 20:20 | NUR ---
Patient transferred to room 444, accompanied by this RN. Patient ambulated to room from PACU with standby assist by RN without difficulty; she denied dizziness, unsteadiness and shortness of air. Patient oriented to room, Nursing call light, Bed/TV controls, telephone, and bathroom; patient encouraged to notify RN when toileting if having any symptoms ie, dizziness, lightheadedness or unsteadiness--patient verbalized agreement. Patient also introduced to RN and [employer]. Transported with clothing, shoes, wig, and cell phone.
[2019-10-14] MEDS: ENOXAPARIN 40 MG/0.4 ML SYRINGE. SQ SCH (22:09)
[2019-10-14] MEDS: INSULIN LISPRO 300 UNITS/3 ML VIAL. SQ SCH (22:18)
[2019-10-15 03:07] LABS: HEMOGLOBIN A1C 13.3 % (4.8-5.6)
[2019-10-15 03:07] LABS: HEMOGLOBIN A1C 13.1 % (4.8-5.6)
[2019-10-15 04:00] VITALS: BP 168/72
[2019-10-15 07:00] VITALS: BP 180/69
[2019-10-15] MEDS: LISINOPRIL 20 MG TABLET PO SCH (08:55)
[2019-10-15] MEDS: amLODIPine BESYLATE 5 MG TABLET PO SCH ×2 (08:56→20:32)
[2019-10-15] MEDS: hydroCHLOROthiazide 12.5 MG CAPSULE PO SCH (08:56)
[2019-10-15] MEDS: INSULIN GLARGINE SYRINGE. SQ SCH ×2 (09:06→20:44)
[2019-10-15] MEDS: INSULIN LISPRO 300 UNITS/3 ML VIAL. SQ SCH ×4 (09:12→20:48)
[2019-10-15] MEDS: ENOXAPARIN 40 MG/0.4 ML SYRINGE. SQ SCH ×2 (09:14→21:00)
--- NOTE | 2019-10-15 11:58 | PDOC ---
PROGRESS NOTES Chief Complaint Chief Complaint IMPRESSION Diabetic ketoacidosis resolved New onset diabetes counseling done greater than 20 minutes in eykn-pu-gdxn encounter Hypertensive urgency suboptimal control Morbid obesity with a BMI of 42 High anion gap acidosis secondary to DKA resolved Severe dehydration resolved Pseudohyponatremia resolved Plan: Continue with lisinopril inc to 15 mg po bid , hydrochlorothiazide and inc norvasc to 5 mg po bid Vasotec as needed iv medical floor Reassess in the a.m. and if glycemia continues to be controlled she may be discharged soon Further recommendations will be based on the clinical course DVT prophylaxis with SCDs Greater than 38 minutes spent in the care of the patient today t> 50% OF TIME SPENT WITH CHART REVIEW, pt exam, pt care coordination History of Present Illness History of Present Illness bp uncontrolled anion gap has closed and she is tolerating a diet. Patient has received education regarding her new diagnosis of diabetes importance of observing an ADA diet and I have explained to her the different options that we have as far as treatment plans. Acute complications of the disease and chronic complications of the disease were also presented to the patient including the possibility of blindness nontraumatic amputations kidney disease that can end up in dialysis heart disease etc. she acknowledged understanding of all the information that I have provided during my encounter Vitals Vitals Vital Signs Date Time Temp Pulse Resp B/P (MAP) Pulse Ox O2 Delivery O2 Flow Rate FiO2 10/15/19 08:56 76 180/69 10/15/19 07:00 97.9 16 98 Room Air 97.9 Physical Exam Physical Exam Gen.: well-developed well-nourished in no apparent distress Head: Normal shape atraumatic Eyes: Pupils equal reactive to light and accommodation, normal conjunctivae and lids Ears: Normal shape Nose: Normal shape no trauma Mouth: No exudates of the back of throat no thrush no lesions Neck: Supple no JVD no carotid bruit or lymphadenopathy no thyromegaly Chest: Lungs clear to auscultation with good inspiratory effort no crackles rales or rhonchi Cardiovascular: S1-S2 regular rhythm no murmurs gallops or rubs Abdomen: Bowel sounds present soft nontender no hepatosplenomegaly appreciated sign Extremities: No clubbing no cyanosis no edema peripheral pulses palpated bilaterally Neurological: Alert awake oriented in person time place and situation, cranial nerves II through XII intact, no motor or sensory deficits appreciated Psych: Appropriate mood, cooperative General: Alert, Oriented X3, Cooperative Heart: Regular rate Labs LABS Laboratory Tests Test 10/14/19 12:04 10/14/19 15:51 10/14/19 21:06 10/15/19 08:18 Glucose (Fingerstick) 164 mg/dL (70-99) 244 mg/dL (70-99) 320 mg/dL (70-99) 261 mg/dL (70-99) Test 10/15/19 11:17 Glucose (Fingerstick) 225 mg/dL (70-99) Assessment and Plan Assessmemt and Plan Problems Medical Problems: (1) DKA (diabetic ketoacidoses) Status: Acute (2) Hypertensive urgency Status: Acute Comment Review of Relevant I have reviewed the following items yashira (where applicable) has been applied. Labs Laboratory Tests Test 10/13/19 16:19 10/13/19 17:06 10/13/19 19:30 10/13/19 20:33 White Blood Count 8.6 x10^3/uL (4.0-11.0) Red Blood Count 4.76 x10^6/uL (3.50-5.40) Hemoglobin 14.9 g/dL (12.0-15.5) Hematocrit 45.8 % (36.0-47.0) Mean Corpuscular Volume 96 fL (79-100) Mean Corpuscular Hemoglobin 31 pg (25-35) Mean Corpuscular Hemoglobin Concent 33 g/dL (31-37) Red Cell Distribution Width 14.2 % (11.5-14.5) Platelet Count 210 x10^3/uL (140-400) Neutrophils (%) (Auto) 61 % (31-73) Lymphocytes (%) (Auto) 29 % (24-48) Monocytes (%) (Auto) 8 % (0-9) Eosinophils (%) (Auto) 1 % (0-3) Basophils (%) (Auto) 1 % (0-3) Neutrophils # (Auto) 5.3 x10^3/uL (1.8-7.7) Lymphocytes # (Auto) 2.5 x10^3/uL (1.0-4.8) Monocytes # (Auto) 0.7 x10^3/uL (0.0-1.1) Eosinophils # (Auto) 0.1 x10^3/uL (0.0-0.7) Basophils # (Auto) 0.1 x10^3/uL (0.0-0.2) Sodium Level 130 mmol/L (136-145) Potassium Level 4.9 mmol/L (3.5-5.1) Chloride Level 94 mmol/L (98-107) Carbon Dioxide Level 16 mmol/L (21-32) Anion Gap 20 (6-14) Blood Urea Nitrogen 16 mg/dL (7-20) Creatinine 1.1 mg/dL (0.6-1.0) Estimated GFR (Cockcroft-Gault) 62.4 BUN/Creatinine Ratio 15 (6-20) Glucose Level 445 mg/dL (70-99) Hemoglobin A1c 13.1 % (4.8-5.6) Calcium Level 9.0 mg/dL (8.5-10.1) Phosphorus Level 4.5 mg/dL (2.6-4.7) Magnesium Level 1.9 mg/dL (1.8-2.4) Total Bilirubin 0.4 mg/dL (0.2-1.0) Aspartate Amino Transf (AST/SGOT) 14 U/L (15-37) Alanine Aminotransferase (ALT/SGPT) 31 U/L (14-59) Alkaline Phosphatase 206 U/L (46-116) Troponin I Quantitative < 0.017 ng/mL (0.000-0.055) Total Protein 7.5 g/dL (6.4-8.2) Albumin 3.8 g/dL (3.4-5.0) Albumin/Globulin Ratio 1.0 (1.0-1.7) Acetone Level Sm pos (NEG) O2 Saturation 97 % (92-99) Arterial Blood pH 7.27 (7.35-7.45) Arterial Blood pCO2 at Patient Temp 33 mmHg (35-46) Arterial Blood pO2 at Patient Temp 95 mmHg (75-108) Arterial Blood HCO3 15 mmol/L (21-28) Arterial Blood Base Excess -11 mmol/L (-3-3) FiO2 Ra 21% Glucose (Fingerstick) 287 mg/dL (70-99) 230 mg/dL (70-99) Test 10/13/19 20:55 10/13/19 21:40 10/13/19 22:42 10/13/19 23:45 Sodium Level 135 mmol/L (136-145) Potassium Level 3.7 mmol/L (3.5-5.1) Chloride Level 102 mmol/L (98-107) Carbon Dioxide Level 18 mmol/L (21-32) Anion Gap 15 (6-14) Blood Urea Nitrogen 13 mg/dL (7-20) Creatinine 0.9 mg/dL (0.6-1.0) Estimated GFR (Cockcroft-Gault) 78.7 Glucose Level 225 mg/dL (70-99) Calcium Level 8.3 mg/dL (8.5-10.1) Phosphorus Level 2.6 mg/dL (2.6-4.7) Magnesium Level 1.7 mg/dL (1.8-2.4) Glucose (Fingerstick) 192 mg/dL (70-99) 215 mg/dL (70-99) 206 mg/dL (70-99) Test 10/14/19 00:47 10/14/19 01:50 10/14/19 02:45 10/14/19 02:54 Glucose (Fingerstick) 154 mg/dL (70-99) 142 mg/dL (70-99) 166 mg/dL (70-99) Sodium Level 138 mmol/L (136-145) Potassium Level 4.1 mmol/L (3.5-5.1) Chloride Level 107 mmol/L (98-107) Carbon Dioxide Level 23 mmol/L (21-32) Anion Gap 8 (6-14) Blood Urea Nitrogen 10 mg/dL (7-20) Creatinine 0.8 mg/dL (0.6-1.0) Estimated GFR (Cockcroft-Gault) 90.1 Glucose Level 169 mg/dL (70-99) Calcium Level 7.6 mg/dL (8.5-10.1) Phosphorus Level 3.5 mg/dL (2.6-4.7) Magnesium Level 1.5 mg/dL (1.8-2.4) Test 10/14/19 03:57 10/14/19 05:06 10/14/19 06:12 10/14/19 07:17 Glucose (Fingerstick) 176 mg/dL (70-99) 99 mg/dL (70-99) 195 mg/dL (70-99) 177 mg/dL (70-99) Test 10/14/19 08:15 10/14/19 08:18 10/14/19 09:01 10/14/19 09:23 Sodium Level 140 mmol/L (136-145) Potassium Level 3.9 mmol/L (3.5-5.1) Chloride Level 109 mmol/L (98-107) Carbon Dioxide Level 21 mmol/L (21-32) Anion Gap 10 (6-14) Blood Urea Nitrogen 8 mg/dL (7-20) Creatinine 0.7 mg/dL (0.6-1.0) Estimated GFR (Cockcroft-Gault) 105.1 Glucose Level 156 mg/dL (70-99) Hemoglobin A1c 13.3 % (4.8-5.6) Calcium Level 7.7 mg/dL (8.5-10.1) Phosphorus Level 2.3 mg/dL (2.6-4.7) Magnesium Level 1.9 mg/dL (1.8-2.4) Glucose (Fingerstick) 157 mg/dL (70-99) 160 mg/dL (70-99) 155 mg/dL (70-99) Test 10/14/19 10:31 10/14/19 12:04 10/14/19 15:51 10/14/19 21:06 Glucose (Fingerstick) 124 mg/dL (70-99) 164 mg/dL (70-99) 244 mg/dL (70-99) 320 mg/dL (70-99) Test 10/15/19 08:18 10/15/19 11:17 Glucose (Fingerstick) 261 mg/dL (70-99) 225 mg/dL (70-99) Laboratory Tests Test 10/14/19 12:04 10/14/19 15:51 10/14/19 21:06 10/15/19 08:18 Glucose (Fingerstick) 164 mg/dL (70-99) 244 mg/dL (70-99) 320 mg/dL (70-99) 261 mg/dL (70-99) Test 10/15/19 11:17 Glucose (Fingerstick) 225 mg/dL (70-99) Medications Current Medications Clonidine HCl (Catapres) 0.2 mg 1X ONCE PO Last administered on 10/13/19at 16:32; Start 10/13/19 at 16:00; Stop 10/13/19 at 16:24; Status DC Sodium Chloride 1,000 ml @ 1,000 mls/hr 1X ONCE IV Last administered on 10/13/19at 16:32; Start 10/13/19 at 16:00; Stop 10/13/19 at 16:59; Status DC Insulin Human Regular 100 ml @ 0 mls/hr 1X ONCE IV Last administered on 10/13/19at 18:14; Start 10/13/19 at 17:15; Stop 10/13/19 at 17:16; Status DC Nicardipine HCl 50 mg/Sodium Chloride 250 ml @ 25 mls/hr CONT PRN IV SEE I/O RECORD Last administered on 10/13/19at 18:11; Start 10/13/19 at 17:45; Stop 10/14/19 at 19:48; Status DC Sodium Chloride 1,000 ml @ 1,000 mls/hr Q1H IV Last administered on 10/13/19at 18:25; Start 10/13/19 at 17:37; Stop 10/13/19 at 18:36; Status DC Sodium Chloride 1,000 ml @ 500 mls/hr Q2H IV ; Start 10/13/19 at 19:00; Stop 10/13/19 at 19:01; Status DC Sodium Chloride 1,000 ml @ 250 mls/hr Q4H IV ; Start 10/13/19 at 19:02; Stop 10/14/19 at 11:39; Status DC Sodium Chloride 1,000 ml @ 250 mls/hr Q4H IV ; Start 10/13/19 at 19:02; Stop 10/14/19 at 11:39; Status DC Dextrose/Sodium Chloride 1,000 ml @ 250 mls/hr Q4H IV ; Start 10/13/19 at 21:00; Stop 10/13/19 at 21:46; Status DC Insulin Human Regular 100 unit/ Sodium Chloride 101 ml @ 0 mls/hr CONT PRN PRN IV PER PROTOCOL Last administered on 10/14/19at 06:38; Start 10/13/19 at 17:45; Stop 10/14/19 at 11:39; Status DC Potassium Chloride/Water 100 ml @ 100 mls/hr PRN Q1HR PRN IV SEE COMMENTS; Start 10/13/19 at 17:45; Stop 10/14/19 at 11:39; Status DC Potassium Chloride/Water 100 ml @ 100 mls/hr PRN Q1HR PRN IV SEE COMMENTS; Start 10/13/19 at 17:45; Stop 10/14/19 at 11:40; Status DC Potassium Chloride/Water 100 ml @ 100 mls/hr PRN Q1HR PRN IV SEE COMMENTS; Start 10/13/19 at 17:45; Stop 10/14/19 at 11:40; Status DC Magnesium Sulfate 100 ml @ 25 mls/hr PRN DAILY PRN IV SEE COMMENTS; Start 10/14/19 at 09:00; Stop 10/14/19 at 19:48; Status DC Sodium Bicarbonate 50 meq/Sodium Chloride 1,050 ml @ 500 mls/hr CONT PRN IV SEE COMMENTS; Start 10/13/19 at 17:37; Stop 10/14/19 at 13:37; Status DC Sodium Phosphate 40 mmol/Sodium Chloride 513.3333 ml @ 83.3 mls/hr 1X PRN PRN IV SEE COMMENTS; Start 10/13/19 at 17:45 Sodium Phosphate 20 mmol/Sodium Chloride 256.6667 ml @ 62.5 mls/hr 1X PRN PRN IV SEE COMMENTS; Start 10/13/19 at 17:45; Stop 10/14/19 at 11:39; Status DC Sodium Phosphate 10 mmol/Sodium Chloride 253.3333 ml @ 25 mls/hr 1X PRN PRN IV SEE COMMENTS; Start 10/13/19 at 17:45; Stop 10/14/19 at 11:39; Status DC Ondansetron HCl (Zofran) 4 mg PRN Q4HRS PRN IV NAUSEA/VOMITING; Start 10/13/19 at 17:45 Acetaminophen (Tylenol) 650 mg PRN Q4HRS PRN PO TEMP OVER 100.4F OR MILD PAIN; Start 10/13/19 at 17:45 Docusate Sodium (Colace) 100 mg PRN BID PRN PO CONSTIPATION; Start 10/13/19 at 17:45 Albuterol Sulfate (Ventolin Neb Soln) 2.5 mg PRN Q4HRS PRN NEB SHORTNESS OF BREATH; Start 10/13/19 at 17:45 Guaifenesin (Robitussin) 200 mg PRN Q4HRS PRN PO COUGH; Start 10/13/19 at 17:45 Lorazepam (Ativan) 0.5 mg PRN Q4HRS PRN PO ANXIETY / AGITATION; Start 10/13/19 at 17:45 Enoxaparin Sodium (Lovenox 40mg Syringe) 40 mg Q24H SQ ; Start 10/13/19 at 21:00; Stop 10/14/19 at 09:44; Status DC Dextrose/Sodium Chloride 1,000 ml @ 250 mls/hr Q4H IV Last administered on 10/14/19at 06:10; Start 10/13/19 at 22:00; Stop 10/14/19 at 11:39; Status DC Potassium Chloride/Water 100 ml @ 100 mls/hr Q1H IV Last administered on 10/14/19at 01:30; Start 10/13/19 at 22:00; Stop 10/14/19 at 01:59; Status DC Sodium Phosphate 20 mmol/Sodium Chloride 256.6667 ml @ 64.167 m... 1X ONCE IV Last administered on 10/13/19at 22:23; Start 10/13/19 at 22:00; Stop 10/14/19 at 01:59; Status DC Potassium Chloride/Water 100 ml @ 100 mls/hr Q1H IV Last administered on 10/14/19at 05:26; Start 10/14/19 at 04:00; Stop 10/14/19 at 05:59; Status DC Magnesium Sulfate 100 ml @ 25 mls/hr 1X ONCE IV Last administered on 10/14/19at 06:38; Start 10/14/19 at 03:45; Stop 10/14/19 at 07:44; Status DC Insulin Glargine (Lantus Syringe) 30 unit BID SQ Last administered on 10/15/19at 09:06; Start 10/14/19 at 10:00 Enoxaparin Sodium (Lovenox 40mg Syringe) 40 mg Q12HR SQ Last administered on 10/15/19at 09:14; Start 10/14/19 at 21:00 Lisinopril (Prinivil) 20 mg DAILY PO Last administered on 10/15/19at 08:55; Start 10/14/19 at 11:30 Hydrochlorothiazide (Microzide) 12.5 mg DAILY PO Last administered on 10/15/19at 08:56; Start 10/14/19 at 11:30 Enalaprilat (Vasotec Inj) 1.25 mg PRN Q6HRS PRN IVP HYPERTENSION Last administered on 10/14/19at 13:33; Start 10/14/19 at 11:30; Stop 10/14/19 at 19:48; Status DC Amlodipine Besylate (Norvasc) 5 mg DAILY PO Last administered on 10/15/19at 0 8:56; Start 10/14/19 at 16:45 Clonidine HCl (Catapres Tts-2) 1 patch WEEKLY TD Last administered on 10/14/19at 20:08; Start 10/14/19 at 20:00 Insulin Human Lispro (HumaLOG) 0-5 UNITS QIDACHS SQ Last administered on 10/15/19at 09:12; Start 10/14/19 at 21:00 Dextrose (Dextrose 50%-Water Syringe) 12.5 gm PRN Q15MIN PRN IV SEE COMMENTS; Start 10/14/19 at 19:45 Dextrose (Iv Dextrose 5%) 250 ml PRN Q15MIN PRN IV SEE COMMENTS; Start 10/14/19 at 19:45 Vitals/I & O Vital Sign - Last 24 Hours 10/14/19 10/14/19 10/14/19 10/14/19 12:00 13:33 16:00 16:50 Temp 99.5 98.7 99.5 98.7 Pulse 63 65 62 74 Resp 20 18 B/P (MAP) 178/88 (118) 172/72 178/80 (112) 155/75 Pulse Ox 97 97 O2 Delivery Room Air Room Air 10/14/19 10/14/19 10/14/19 10/14/19 19:00 19:30 20:00 23:59 Temp 98.0 98.1 98.1 98.0 98.1 98.1 Pulse 72 88 67 Resp 18 18 18 B/P (MAP) 161/70 (100) 176/72 (106) 143/55 (84) Pulse Ox 98 99 100 O2 Delivery Room Air Room Air Room Air Room Air 10/15/19 10/15/19 10/15/19 10/15/19 04:00 07:00 08:55 08:56 Temp 98.0 97.9 98.0 97.9 Pulse 63 76 76 76 Resp 18 16 B/P (MAP) 168/72 (104) 180/69 (106) 180/69 180/69 Pulse Ox 98 98 O2 Delivery Room Air Room Air Intake and Output 10/14/19 10/14/19 10/15/19 15:00 23:00 07:00 Intake Total 976 ml 100 ml 100 ml Balance 976 ml 100 ml 100 ml MORGAN YOUNG MD Oct 15, 2019 11:58
[2019-10-15 12:00] VITALS: BP 173/83
--- NOTE | 2019-10-15 12:50 | NUR ---
SW following. Discussed with RN, pt from home, new diabetic, pt on a sliding scale. Pt works at [employer]. RN advised no SW needs at this time. SW will continue to follow.
[2019-10-15 15:00] VITALS: BP 166/77
[2019-10-15] MEDS ORDERED: hydrALAZINE 20 MG/ML VIAL. IVP PRN (16:30)
--- NOTE | 2019-10-15 16:32 | PDOC2 ---
GRISELDA CONTRERAS CATERING ASSISTANT 10/15/19 1631: CARDIAC CONSULT DATE OF CONSULT Date of Consult DATE: 10/15/19 TIME: 16:17 REASON FOR CONSULT Reason for Consult: Hypertension REFERRING PHYSICIAN Referring Physician: Dr. Frances SOURCE Source: Chart review, Patient HISTORY OF PRESENT ILLNESS HISTORY OF PRESENT ILLNESS This is a 54 yo female who presented secondary to new onset of diabetes. Was referred from PCP. Sought out care due to 2-week history of increased thirst and urinary frequency. Blood sugar was noted to be elevated and was referred to the ED for further evaluation and treatment. She denies any chest pain, palpitations, dizziness, diaphoresis, SOA, or nausea/vomiting. PAST MEDICAL HISTORY Cardiovascular: HTN PAST SURGICAL HISTORY Past Surgical History: Tubal Ligation, Hysterectomy FAMILY HISTORY Family History: Diabetes, Hypertension SOCIAL HISTORY Smoke: <1 pack per day ALCOHOL: none Drugs: None Lives: with Family CURRENT MEDICATIONS CURRENT MEDICATIONS Current Medications Medications (Trade) Dose Ordered Sig/Gavin Route PRN Reason Start Time Stop Time Status Last Admin Dose Admin Enoxaparin Sodium (Lovenox 40mg Syringe) 40 mg Q12HR SQ 10/14/19 21:00 10/15/19 09:14 Amlodipine Besylate (Norvasc) 5 mg DAILY PO 10/14/19 16:45 10/15/19 14:05 DC 10/15/19 08:56 Clonidine HCl (Catapres Tts-2) 1 patch WEEKLY TD 10/14/19 20:00 10/14/19 20:08 Insulin Human Lispro (HumaLOG) 0-5 UNITS QIDACHS SQ 10/14/19 21:00 10/15/19 11:30 ALLERGIES ALLERGIES: Coded Allergies: No Known Drug Allergies (Unverified , 10/13/19) ROS Review of System 14 point ROS conducted with pertinent positives noted above in HPI PHYSICAL EXAM General: Alert, Oriented X3, Cooperative, No acute distress HEENT: Atraumatic, Mucous membr. moist/pink Lungs: Clear to auscultation, Normal air movement Heart: Regular rate Abdomen: Soft, No tenderness Extremities: No edema, Normal pulses Skin: No breakdown, No significant lesion Neuro: Normal speech, Sensation intact Psych/Mental Status: Mental status NL, Mood NL MUSCULOSKELETAL: No deformity VITALS/I&O VITALS/I&O: Vital Signs Date Time Temp Pulse Resp B/P (MAP) Pulse Ox O2 Delivery O2 Flow Rate FiO2 10/15/19 12:00 98.0 101 16 173/83 (113) 95 Room Air 98.0 I & O 10/14/19 10/14/19 10/15/19 15:00 23:00 07:00 Intake Total 976 ml 100 ml 100 ml Balance 976 ml 100 ml 100 ml LABS Lab: Laboratory Tests Test 10/14/19 21:06 10/15/19 08:18 10/15/19 11:17 Glucose (Fingerstick) 320 mg/dL (70-99) H 261 mg/dL (70-99) H 225 mg/dL (70-99) H ASSESSMENT/PLAN ASSESSMENT/PLAN 1. DKA 2. Diabetes, II; new diagnosis. HgA1c 13 3. Accelerated hypertension; labile. not previously on medical therapy at home. 4. Morbid obesity Recommendations Increase lisinopril Continue Norvasc. Has clonidine patch Hydralazine PRN DASH diet Encouraged weight loss. Supportive care TIMI GARCIA MD 10/15/191926: CARDIAC CONSULT ASSESSMENT/PLAN ASSESSMENT/PLAN Patient seen and examined. Agree with GIS TECHNICIAN's assessment and plan. Agree with increasing lisinopril dose for better BP control Treat newly diagnosed DM per IM Plan outpatient 2D echo and ischemic evaluation Thank you for your consultation GRISELDA CONTRERAS APRN Oct 15, 2019 16:31 TIMI GARCIA MD Oct 15, 2019 19:27
--- NOTE | 2019-10-15 17:06 | NUR ---
Education initiated on Diabetes-instructed on how to draw up insulin, which area to use, given hand out on Lantus insulin, also advised to see PCP after dismissal, purchase BP machine & record readings for MD, notiifed that MD had adjusted BP meds, will continue to observe
[2019-10-15 17:28] LABS: BILIRUBIN,URINE NEGATIVE (NEG); CLARITY,URINE CLEAR; COLOR,URINE YELLOW; NITRITE,URINE NEGATIVE (NEG); PH,URINE 5.5 (<5.0-8.0); PROTEIN,URINE NEGATIVE (NEG-TRACE); UROBILINOGEN,URINE 0.2 mg/dL (0.2 mg/dL)
[2019-10-15 17:32] LABS: BARBITURATES NEG (NEG); BENZODIAZEPINES NEG (NEG); CANNABINOIDS POS (NEG); COCAINE NEG (NEG); METHADONE NEG (NEG); OPIATES NEG (NEG); PHENCYCLIDINE NEG (NEG)
[2019-10-15 17:36] LABS: BACTERIA,URINE MODERATE /HPF (0-FEW); RBC,URINE 0 /HPF (0-2); SQUAMOUS EPITHELIAL CELL,UR MOD /LPF; WBC,URINE RARE /HPF (0-4)
[2019-10-15 17:39] LABS: AMPHETAMINE/METHAMPHETAMINE NEG (NEG)
[2019-10-15 19:00] VITALS: BP 186/84
[2019-10-15] MEDS ORDERED: LISINOPRIL 10 MG TABLET PO SCH (21:00)
[2019-10-15] MEDS ORDERED: LISINOPRIL 20 MG TABLET PO ONE (21:00)
[2019-10-15 23:00] VITALS: BP 149/81
[2019-10-16 07:00] VITALS: BP 132/74
[2019-10-16] MEDS: hydroCHLOROthiazide 12.5 MG CAPSULE PO SCH (08:44)
[2019-10-16] MEDS: amLODIPine BESYLATE 5 MG TABLET PO SCH (08:45)
[2019-10-16] MEDS: ENOXAPARIN 40 MG/0.4 ML SYRINGE. SQ SCH (08:50)
[2019-10-16] MEDS: INSULIN LISPRO 300 UNITS/3 ML VIAL. SQ SCH ×2 (08:53→12:47)
[2019-10-16] MEDS: INSULIN GLARGINE SYRINGE. SQ SCH (08:58)
[2019-10-16] MEDS ORDERED: LISINOPRIL 20 MG TABLET PO SCH (09:00)
--- NOTE | 2019-10-16 10:05 | NUR ---
SW following. Discussed with RN, pt from home. RN advised no SW needs at this time and anticipates possible discharge home today with self care. SW will continue to follow for any discharge planning needs.
[2019-10-16 11:00] VITALS: BP 136/77
--- NOTE | 2019-10-16 11:12 | CARD ---
MR#: [id number] Date of Study: 10/16/2019 Ordering Physician: MORGAN YOUNG, Referring Physician: MORGAN YOUNG, Tech: Payton Dotson APPROVED REPORT EXAM: Two-dimensional and M-mode echocardiogram with Doppler and color Doppler. Other Information Quality : AverageHR: 71bpm Technically limited study due to body habitus. INDICATION Hypertension/HCVD RISK FACTORS Diabetes Smoking 2D DIMENSIONS RVDd3.3 (2.9-3.5cm)Left Atrium(2D)2.9 (1.6-4.0cm) IVSd1.0 (0.7-1.1cm)Aortic Root(2D)2.9 (2.0-3.7cm) LVDd4.4 (3.9-5.9cm)LVOT Diameter1.9 (1.8-2.4cm) PWd1.2 (0.7-1.1cm)LVDs2.0 (2.5-4.0cm) FS (%) 54.3 %SV75.4 ml LVEF(%)85.3 (>50%) Aortic Valve AoV Peak Elpidio.182.6cm/sAoV VTI30.6cm AO Peak GR.13.3mmHgLVOT Peak Elpidio.150.6cm/s LVOT VTI 30.30cmAO Mean GR.7mmHg LEISA (VMAX)1.40ki6YHV (VTI)2.90cm2 Mitral Valve MV E Kvcbbmat88.3cm/sMV DECEL ZPBH599ct MV A Nzrgqicw73.2cm/sMV E Mean Gr.2mmHg MV KCB61bqQ/A Ratio0.8 MVA (PHT)2.71cm2 TDI E/Lateral E'8.9E/Medial E'10.1 Pulmonary Valve PV Peak Devmzvnm796.8cm/sPV Peak Grad.8mmHg Tricuspid Valve TR P. Lxchysdu679er/sRAP YAGDZUCH2wqPz TR Peak Gr.38rwGsSICF35rrCo Pulmonary Vein S1 Kitsvamc55.7cm/sD2 Tcqqwwrf79.1cm/s PVa [id number] LEFT VENTRICLE The left ventricle is normal size. There is normal left ventricular wall thickness. The left ventricu lar systolic function is normal and the ejection fraction is within normal range. The Ejection Fracti on is 65-70%. There is normal LV segmental wall motion. Transmitral Doppler flow pattern is Grade I-a bnormal relaxation pattern. RIGHT VENTRICLE The right ventricle is normal size. There is normal right ventricular wall thickness. The right ventr icular systolic function is normal. ATRIA The left atrium size is normal. The right atrium size is normal. The interatrial septum is intact wit h no evidence for an atrial septal defect or patent foramen ovale as noted on 2-D or Doppler imaging. AORTIC VALVE The aortic valve is normal in structure and function. Doppler and Color Flow revealed trace aortic re gurgitation. There is no significant aortic valvular stenosis. MITRAL VALVE The mitral valve is normal in structure and function. There is no evidence of mitral valve prolapse. There is no mitral valve stenosis. Doppler and Color-flow revealed trace mitral regurgitation. TRICUSPID VALVE The tricuspid valve is normal in structure and function. Doppler and Color Flow revealed trace tricus pid regurgitation with an estimated PAP of 34 mmHg. There is no tricuspid valve stenosis. PULMONIC VALVE Doppler and Color Flow revealed no pulmonic valvular regurgitation. There is no pulmonic valvular melinda nosis. GREAT VESSELS The aortic root is normal in size. The ascending aorta is normal in size. The IVC is normal in size a nd collapses >50% with inspiration. PERICARDIAL EFFUSION There is no evidence of significant pericardial effusion. Critical Notification Critical Value: No <Conclusion> The left ventricular systolic function is normal and the ejection fraction is within normal range. Th e Ejection Fraction is 65-70%. There is normal LV segmental wall motion. Signed by : Joshua Sommers, Electronically Approved : 10/16/2019 11:11:43
--- NOTE | 2019-10-16 13:11 | DS ---
DATE OF DISCHARGE: 10/16/2019 ADMISSION DIAGNOSIS: Diabetic ketoacidosis. DISCHARGE DIAGNOSES: Resolving diabetic ketoacidosis and new diabetes. HOSPITAL COURSE: The patient is a pleasant 54-year-old female who presented with DKA. She also had hypertensive urgency. We admitted her, gave her good glycemic control. Today, I saw her and examined her. She is doing well. Heart tones are normal. Lungs are clear. We plan to discharge to home on scheduled insulin. DISPOSITION: Home. ACTIVITY: As tolerated. DIET: 1800 calorie ADA. MEDICATIONS: Please see MRAD. TOTAL TIME: 38 minutes. RIMMAL Domingo LIU DO DR: TORRES/cheryl JOB#: [id number] / [id number]
--- NOTE | 2019-10-16 13:41 | PDOC ---
JACINTA ACUNA TURNER SPLITTER MACHINE OPERATOR 10/16/19 1341: CARDIO Progress Notes Date and Time Date of Service 10/16/2019 Time of Evaluation 1050 Subjective Subjective: No Chest Pain, No shortness of breath, No Palpitations Vitals Vitals Vital Signs Date Time Temp Pulse Resp B/P (MAP) Pulse Ox O2 Delivery O2 Flow Rate FiO2 10/16/19 11:00 98.0 86 16 136/77 (96) 96 Room Air 98.0 Weight Weight [ ] Input and Output Intake and Output Intake and Output 10/16/19 07:00 Intake Total 200 ml Balance 200 ml Intake Oral 200 ml # Voids 1 Laboratory Labs Laboratory Tests Test 10/15/19 17:10 10/15/19 17:15 10/15/19 20:30 10/16/19 07:16 Urine Collection Type Unknown Urine Color Yellow Urine Clarity Clear Urine pH 5.5 (<5.0-8.0) Urine Specific [place] 1.025 (1.000-1.030) Urine Protein Negative mg/dL (NEG-TRACE) Urine Glucose (UA) >=1000 mg/dL (NEG) Urine Ketones (Stick) 40 mg/dL (NEG) Urine Blood Negative (NEG) Urine Nitrite Negative (NEG) Urine Bilirubin Negative (NEG) Urine Urobilinogen Dipstick 0.2 mg/dL (0.2 mg/dL) Urine Leukocyte Esterase Negative (NEG) Urine RBC 0 /HPF (0-2) Urine WBC Rare /HPF (0-4) Urine Squamous Epithelial Cells Mod /LPF Urine Bacteria Moderate /HPF (0-FEW) Urine Mucus Mod /LPF Urine Opiates Screen Neg (NEG) Urine Methadone Screen Neg (NEG) Urine Barbiturates Neg (NEG) Urine Phencyclidine Screen Neg (NEG) Urine Amphetamine/Methamphetamine Neg (NEG) Urine Benzodiazepines Screen Neg (NEG) Urine Cocaine Screen Neg (NEG) Urine Cannabinoids Screen Pos (NEG) Urine Ethyl Alcohol Neg (NEG) Glucose (Fingerstick) 243 mg/dL (70-99) 322 mg/dL (70-99) 315 mg/dL (70-99) Test 10/16/19 11:26 Glucose (Fingerstick) 295 mg/dL (70-99) Physical Exam HEENT: Neck Supple W Full Motion Chest: Symmetric LUNGS: Clear to Auscultation Heart: S1S2, RRR Abdomen: Soft N/T Extremities: No Edema, No Calf Tenderness Neurology: alert, oriented, follow commands Assessment Assessment 1. DKA: new finding. DM2 A1C 13.3 per PCP 2. Accelerated hypertension: better controlled. EF and WM nml 3. Morbid obesity 4. HLP 5. Tobaccoism/marijuana use Recommendations 1. Continue with current BP regimen start on statin 2. Dietitian consult. Diabetic/DASH diet 3. Wt loss. Cessation of marijuana and tobacco discussed KORINA DELANEY MD 10/16/19 1452: CARDIO Progress Notes Assessment Assessment Patient seen and evaluated Discussed with our TEAM LEADER and agree with his assessment. DKA. New onset as above. Continue medications as per the primary service. Hypertension. Much better controlled. Normal ejection fraction. Continue on medical treatment. Obesity. Tobacco and marijuana use. Counseled for discontinuation. Hyperlipidemia. Initial diet treatment as above. 1. DKA: new finding. DM2 A1C 13.3 per PCP 2. Accelerated hypertension: better controlled. EF and WM nml 3. Morbid obesity 4. HLP 5. Tobaccoism/marijuana use JACINTA ACUNA TURNER SPLITTER MACHINE OPERATOR Oct 16, 2019 13:41 KORINA DELANEY MD Oct 16, 2019 14:52
--- NOTE | 2019-10-16 13:51 | NUR ---
Discharged to home per w/c, by self, drove to [facility], educational materials given on Diabetes, medication & smoking cessation, to follow up with Dr. Camilo DE LA VEGA, and Dr. Casanova as needed, see discharge instruction for details
[2019-10-16] MEDS ORDERED: ATORVASTATIN CALCIUM 20 MG TABLET PO SCH (21:00)
== END 2019-10-16 13:54 | disposition home or self-care (01) | DRG 304 ==
LOC: ER 15:34 → PACU-ICU 18:34 → 4 NORTH 10-14 21:31
PROVIDERS: ADMIT Internal Medicine; ATTEND Internal Medicine
DX: I16.0 Hypertensive urgency (principal); E11.10 Type 2 diabetes mellitus with ketoacidosis without coma; Z68.41 Body mass index [BMI] 40.0-44.9, adult; E66.01 Morbid (severe) obesity due to excess calories; E78.5 Hyperlipidemia, unspecified; E86.0 Dehydration; F12.90 Cannabis use, unspecified, uncomplicated; F17.210 Nicotine dependence, cigarettes, uncomplicated; I10 Essential (primary) hypertension; Z82.49 Family history of ischemic heart disease and other diseases of the circulatory system; Z83.3 Family history of diabetes mellitus; Z90.710 Acquired absence of both cervix and uterus; Z98.51 Tubal ligation status; Z79.899 Other long term (current) drug therapy
CPT/HCPCS: 36415; 36600; 80048; 80053; 80061; 80307; 81001; 82010; 82805; 82962; 83036; 83735; 84100; 84484; 85025; 87086; 93005; 93306; J1650; J1815; J3475; J3480; J3490; J7030; J7042; J7050; G0378